=== PATIENT | male | born 1990 | race Hispanic/Latino ===

== ENCOUNTER 2022-04-27 19:09 | Emergency (ER) | payer OTHER ==
[~2022-04-27] VITALS: Ht 157.5 cm; Wt 127.0 kg
[2022-04-27] MEDS ORDERED: ONDANSETRON HCL INJ 2MG/ML 2ML 2 MG/ML VIAL IV STA (19:55)
[2022-04-27] MEDS ORDERED: Morphine 4mg Syringe 4 MG/ML INJ IV ONE (20:00)
[2022-04-27] MEDS ORDERED: NAPROSYN500 MG PO (22:36)
== END 2022-04-27 23:00 | disposition home or self-care (01) ==
LOC: ER 20:00
DX: S83.8X1A Sprain of other specified parts of right knee, initial encounter (principal); X50.1XXA Overexertion from prolonged static or awkward postures, initial encounter; Y92.89 Other specified places as the place of occurrence of the external cause; I10 Essential (primary) hypertension; E11.9 Type 2 diabetes mellitus without complications; Z89.512 Acquired absence of left leg below knee; F17.210 Nicotine dependence, cigarettes, uncomplicated
CPT/HCPCS: 73552; 73562; 93005; 99284; J2270; J2405

== ENCOUNTER → 2024-04-05 | Day surgery (SDC) | payer OTHER ==
[2024-04-01 12:57] LABS: BASOPHILS % 0.3 % (0.0-1.0); EOSINOPHILS # (AUTO) 0.3 (0.0-0.4); EOSINOPHILS % 2.5 % (0.0-6.0); HEMATOCRIT 45.2 % (38.2-49.6); HEMOGLOBIN 15.2 g/dL (14.0-18.0); LYMPHOCYTES # (AUTO) 2.2 (1.0-3.2); LYMPHOCYTES % 19.8 % (18.0-39.1); MEAN CORPUSCULAR HEMOGLOBIN 27.3 pg (28-32); MEAN CORPUSCULAR HGB CONC 33.6 g/dL (31-35); MEAN CORPUSCULAR VOLUME 81.1 fL (81-99); NEUTROPHILS # (AUTO) 7.5 (2.1-6.9); NEUTROPHILS % 67.9 % (38.7-80.0); PLATELET COUNT 247 x10e3/uL (140-360); RED BLOOD COUNT 5.57 x10e6/uL (4.3-5.7); RED CELL DISTRIBUTION WIDTH 13.5 % (11.7-14.4); WHITE BLOOD COUNT 11.04 x10e3/uL (4.8-10.8)
[2024-04-01 13:22] LABS: ALBUMIN 3.5 g/dL (3.5-5.0); ALBUMIN/GLOBULIN RATIO 0.9 (0.8-2.0); ANION GAP 12.8 mmol/L (8-16); BILIRUBIN,TOTAL 0.5 mg/dL (0.2-1.2); CREATININE, SERUM 0.68 mg/dL (0.72-1.25); POTASSIUM 3.8 mmol/L (3.5-5.1); TOTAL PROTEIN 7.5 g/dL (6.5-8.1)
[~2024-04-05] MED LIST: ACETAMINOPHEN 1000 MG/100 ML IV ONE; BUPIVACAINE 0.25% 30ML SDV ONE; CEFTRIAXONE 1 GM VIAL ONE; DEXAMETHASONE SOD PHOS INJ 4 MG/ML SDV ONE; DEXMEDETOMIDINE HCL 200 MCG/2 ML VIAL ONE; FENTANYL CITRATE/PF 100MCG/2 ML INJ ONE; HYDROCODON-ACE1 EAC9 PO; HYDROCODONE/APAP 7.5MG-325MG 1 EA TAB ONE; JANUVIA50 MG PO; LIDOCAINE 1% W/EPINEPHRINE 20 ML VIAL ONE; LIDOCAINE HCL 2% LOCAL INJ 5 ML SDV VIAL INJ ONE; METOCLOPRAMIDE HCL 10 MG/2ML VIAL ONE; NAPROSYN500 MG PO; ONDANSETRON HCL INJ 2MG/ML 2ML 2 MG/ML VIAL ONE; PHENYLEPHRINE HCL 1% 10 MG/ML VIAL ONE; PROPOFOL IV EMULSION 10 MG/ML 20 ML VIAL ONE; ROCURONIUM BROMIDE 10 MG/ML 5ML VIAL IV ONE; SEVOFLURANE INHAL SOLN 250 ML PEN BTL ONE; SUCCINYLCHOLINE CHLORIDE 20 MG/ML 10ML VIAL ONE; TRESIBA100 UNIT/1 SC; ZESTRIL10 MG PO
[2024-04-05] MEDS: LACTATED RINGER'S 1,000 ML ONE (07:24)
[2024-04-05] MEDS: DEXTROSE 5% 250ML 250 ML IV ONE (07:26)
[2024-04-05] MEDS: HYDROCODONE/APAP 7.5MG-325MG 1 EA TAB PO ONE (10:53)
[2024-04-05 12:30] VITALS: BP 152/81; PULSE 89; RESP 15; O2SAT 96
== END | disposition home or self-care (01) ==
LOC: OR 06:52
PROVIDERS: ATTEND Surgery
DX: M62.89 Other specified disorders of muscle (principal); B07.9 Viral wart, unspecified; I10 Essential (primary) hypertension; G47.33 Obstructive sleep apnea (adult) (pediatric); E11.9 Type 2 diabetes mellitus without complications; E66.01 Morbid (severe) obesity due to excess calories; F17.210 Nicotine dependence, cigarettes, uncomplicated; Z01.810 Encounter for preprocedural cardiovascular examination; Z01.812 Encounter for preprocedural laboratory examination; Z79.84 Long term (current) use of oral hypoglycemic drugs; Z79.4 Long term (current) use of insulin; Z79.899 Other long term (current) drug therapy; Z89.512 Acquired absence of left leg below knee; Z86.19 Personal history of other infectious and parasitic diseases
CPT/HCPCS: 21556; 36415 ×2; 80053; 82948; 85025; 88304; 93005; J0131; J0330; J1100; J2001; J2371; J2405; J2704; J2765; J3010; J7070; J7121; 88305; J0696